=== PATIENT | male | born 1980 | race Two or more races ===

== ENCOUNTER 2024-11-06 21:21 | Emergency (ER) | payer MEDICAID, OTHER ==
[~2024-11-06] VITALS: Ht 172.7 cm; Wt 92.3 kg
[2024-11-06 21:25] VITALS: BP 92/64; RESP 18; O2SAT 98
[2024-11-06 21:41] VITALS: PULSE 47
[2024-11-06] MEDS ORDERED: SODIUM CHLORIDE 0.9% 2,000 ML IV ONE (21:45)
--- NOTE | 2024-11-06 21:56 | ED.PDOC ---
History of Present Illness HPI Comments 44 y/o M presents for c/o syncope, today. Patient endorses on having a sudden syncopal episode, while ambulating to his kitchen to get a drink, after getting up from a laying position, earlier, this evening. He comments on having a headache and feeling nausea prior to episode onset and having no Hx of syncopal episodes in the past. At time of assessment, patient states on feeling fatigue, currently, and denies on sustaining any injuries or developing any weakness, numbness, tingling, or other associated symptoms. Upon arrival to ED triage, patient was noted to have had a blood glucose of 100 and a blood pressure of 92/64. Chief Complaint: Syncope Time Seen by MD: 21:35 Reviewed Notes: Nurses Notes, Medications, Allergies Allergies: Coded Allergies: NO KNOWN ALLERGIES (Unverified , 11/06/24) Information Source: Patient Mode of Arrival: EMS Severity: Moderate Timing: Hours Duration: Minutes Prehospital treatment: None Past Medical History PAST MEDICAL HISTORY: Denies Surgical History: Denies all surgeries Family History Family History: Unknown Social History Smoker: Non-Smoker Alcohol: Denies ETOH Use Drugs: Denies Drug Use Lives In: Home Constitutional: reports: fatigue; denies: chills, diaphoresis, fever, malaise, sweats, weakness, others EENTM: denies: blurred vision, double vision, ear bleeding, ear discharge, ear drainage, ear pain, ear ringing, eye pain, eye redness, hearing loss, mouth pain, mouth swelling, nasal discharge, nose bleeding, nose congestion, nose pain, photophobia, tearing, throat pain, throat swelling, voice changes, others Respiratory: denies: cough, hemoptysis, orthopnea, SOB at rest, shortness of breath, SOB with excertion, stridor, wheezing, others Cardiovascular: reports: syncope; denies: chest pain, dizzy spells, diaphoresis, Dyspnea on exertion, edema, irregular heart beat, left arm pain, lightheadedness, palpitations, PND, others Gastrointestinal: denies: abdomen distended, abdominal pain, blood streaked bowels, constipated, diarrhea, dysphagia, difficulty swallowing, hematemesis, melena, nausea, poor appetite, poor fluid intake, rectal bleeding, rectal pain, vomiting, others Genitourinary: denies: burning, dysuria, flank pain, frequency, hematuria, incontinence, penile discharge, penile sore, pain, testicle pain, testicle swelling, urgency, others Neurological: reports: fainting; denies: dizziness, headache, left sided numbness, left sided weakness, numbness, paresthesia, pre-existing deficit, right sided numbness, right sided weakness, seizure, speech problems, tingling, tremors, weakness, others Musculoskeletal: denies: back pain, gout, joint pain, joint swelling, muscle pain, muscle stiffness, neck pain, others Integumetry: denies: bruises, change in color, change in hair/nails, dryness, laceration, lesions, lumps, rash, wounds, others Allergic/Immunocompromised: denies: Difficulty Healing, Frequent Infections, Hives, Itching, others Hematologic/Lymphatic: denies: anemia, blood clots, easy bleeding, easy bruising, swollen glands, others Endocrine: denies: excessive hunger, excessive sweating, excessive thirst, excessive urination, flushing, intolerance to cold, intolerance to heat, unexplained weight gain, unexplained weight loss, others Psychiatric: denies: anxiety, bipolar disorder, depression, hopeless, panic disorder, schizophrenia, sleepless, suicidal, others All Other Systems: Reviewed and Negative (negative unless otherwise stated above or in HPI) Physical Exam General Appearance: Mild Distress (Patient appears to be in mild distress due to his complaints. Patient appears tired.), Normal HEENT: Normal ENT Inspection, Pharynx Normal, TMs Normal Neck: Full Range of Motion, Non-Tender, Normal, Normal Inspection Respiratory: Chest Non-Tender, Lungs Clear, No Accessory Muscle Use, No Respiratory Distress, Normal Breath Sounds Cardiovascular: No Edema, No JVD, No Murmur, No Gallop, Normal Peripheral Pulses, Regular Rate/Rhythm Breast Exam: Deferred Gastrointestinal: No Organomegaly, Non Tender, No Pulsatile Mass, Normal Bowel Sounds, Soft Genitalia: Deferred Pelvic: Deferred Rectal: Deferred Extremities: No calf tenderness, Normal capillary refill, Normal inspection, Normal range of motion, Non-tender, No pedal edema Neurologic: Alert, No Motor Deficits, Normal Affect, Normal Mood, No Sensory Deficits Cerebellar Function: Normal Reflexes: Normal Skin: Dry, Normal Color, Warm Lymphatic: No Adenopathy Was a procedure done? Was a procedure done?: No Differential Dx Considerations may include: vasovagal response, dehydration, electrolyte imbalance, hypotension, hypoxia, acute coronary syndrome X-Ray, Labs, Meds, VS Vital Signs Date Time Temp Pulse Resp B/P (MAP) Pulse Ox O2 Delivery O2 Flow Rate FiO2 11/06/24 21:41 47 11/06/24 21:25 97.1 76 18 92/64 (73) 98 Lab Test 11/06/24 22:01 11/06/24 21:36 Range/Units White Blood Count 6.4 4.4-10.8 10^3/uL Red Blood Count 5.02 4.5-5.90 10^6/uL Hemoglobin 14.5 13.5-17.5 g/dL Hematocrit 43.8 41.0-53.0 % Mean Corpuscular Volume 87.2 80.0-100.0 fL Mean Corpuscular Hemoglobin 28.9 28.0-32.0 pg Mean Corpuscular Hemoglobin Concent 33.2 32.0-36.0 g/dL Red Cell Distribution Width 14.6 H 11.8-14.3 % Platelet Count 282 140-450 10^3/uL Mean Platelet Volume 6.8 L 6.9-10.8 fL Neutrophils (%) (Auto) 55.6 37.0-80.0 % Lymphocytes (%) (Auto) 31.5 10.0-50.0 % Monocytes (%) (Auto) 9.7 0.0-12.0 % Eosinophils (%) (Auto) 2.8 0.0-7.0 % Basophils (%) (Auto) 0.4 0.0-2.0 % Neutrophils # (Auto) 3.5 1.6-8.6 10 ^3/uL Lymphocytes # (Auto) 2.0 0.4-5.4 10 ^3/uL Monocytes # (Auto) 0.6 0-1.3 10 ^3/uL Eosinophils # (Auto) 0.2 0-0.8 10 ^3/uL Basophils # (Auto) 0 0-0.2 10 ^3/uL Nucleated Red Blood Cells 0.0 % Sodium Level 143 136-145 mmol/L Potassium Level 3.6 3.5-5.1 mmol/L Chloride Level 108 H 98-107 mmol/L Carbon Dioxide Level 29 20-31 mmol/L Anion Gap 6 5-15 Blood Urea Nitrogen 21 9-23 mg/dL Creatinine 1.56 H 0.700-1.30 mg/dL Glomerular Filtration Rate Calc 57 >90 mL/min BUN/Creatinine Ratio 13.5 10.0-20.0 Serum Glucose 128 H 74-106 mg/dL Lactic Acid Level 1.3 0.4-2.0 mmol/L Calcium Level 9.9 8.7-10.4 mg/dL POC Glucose 100 70-106 mg/dl X-Ray, Labs, Meds, VS Comment All studies performed the ED were evaluated by me personally. Laboratories studies were unremarkable for any systemic process. EKG was remarkable for a sinus bradycardia with a rate of 47, IA interval of 153 and QT interval 450. CT imaging of head was unremarkable for any acute intracranial process. I attempted multiple times to locate the patient in the lobby to inform him of the findings and a desire to repeat his vital signs due to hypotension, but it appears the patient has left the facility. Time of 1ST Reevaluation: 00:48 Reevaluation 1ST: Unchanged Consultation: PCP, Cardiology Patient Education/Counseling: Diagnosis, Treatment Family Education/Counseling: Diagnosis, Treatment, No Family Present Departure 1 Departure Time of Disposition: 00:48 Impression: Primary Impression: Vasovagal episode Disposition: LEFT AWOL/ELOPED Condition: Fair Discharged With: Self Critical Care Note Critical Care Time?: No Stability Stability form required: No Heart Score Heart Score: Heart Score Response (Comments) Value History N/A 0 EKG N/A 0 Age N/A 0 Risk Factors N/A 0 Troponin N/A 0 Total 0 I personally scribed for FAITH LAWRENCE PAC [email or web address]) on 11/06/24 at 21:56. Electronically submitted by Ayden Galarza ([email or web address]). I personally scribed for FAITH LAWRENCE PAC ([email or web address]) on 11/06/24 at 22:00. Electronically submitted by Ayden Galarza [email or web address]). FAITH LAWRENCE PAC Nov 06, 2024 21:56
[2024-11-06 22:14] LABS: Basophils # (auto) 0 10 ^3/uL (0-0.2); Basophils % (auto) 0.4 % (0.0-2.0); Eosinophils # (auto) 0.2 10 ^3/uL (0-0.8); Eosinophils % (auto) 2.8 % (0.0-7.0); Hematocrit 43.8 % (41.0-53.0); Hemoglobin 14.5 g/dL (13.5-17.5); Lymphocytes % (auto) 31.5 % (10.0-50.0); Mean Corpuscular Hemoglobin 28.9 pg (28.0-32.0); Mean Corpuscular Hgb Conc. 33.2 g/dL (32.0-36.0); Mean Corpuscular Volume 87.2 fL (80.0-100.0); Monocytes # (auto) 0.6 10 ^3/uL (0-1.3); Monocytes % (auto) 9.7 % (0.0-12.0); Neutrophils # (auto) 3.5 10 ^3/uL (1.6-8.6); Neutrophils % (auto) 55.6 % (37.0-80.0); Platelet Count (auto) 282 10^3/uL (140-450); Red Blood Cells 5.02 10^6/uL (4.5-5.90); Red Cell Distribution Width 14.6 % (11.8-14.3); White Blood Cell 6.4 10^3/uL (4.4-10.8)
--- NOTE | 2024-11-06 22:19 | DVH ---
CLINICAL HISTORY: Syncopal event TECHNIQUE: Helical imaging carried out from skull base to vertex without intravenous contrast. This e xam was performed according to our departmental dose optimization program. Up-to-date CT equipment an d radiation dose reduction techniques are utilized as appropriate. CTDIVol: 65.18 mGy DLP: 1153.87 mGy-cm WID: COMPARISON: None FINDINGS: The ventricles and subarachnoid spaces are normal in size and configuration. There is no midline deon ft or mass effect. The mcgrath white matter interfaces are maintained. The basal cisterns are patent. Th ere is no evidence of acute intracranial hemorrhage or extra-axial fluid collection. The mastoid air cells and visualized paranasal sinuses are well-aerated. IMPRESSION: No acute intracranial abnormality.
[2024-11-06 22:28] LABS: Potassium 3.6 mmol/L (3.5-5.1); Sodium 143 mmol/L (136-145)
[2024-11-06 22:29] LABS: Anion Gap 6 (5-15); Calcium 9.9 mg/dL (8.7-10.4); Carbon Dioxide 29 mmol/L (20-31)
[2024-11-06 22:34] LABS: BUN/Creatinine Ratio 13.5 (10.0-20.0); Blood Urea Nitrogen 21 mg/dL (9-23)
[2024-11-06 22:35] LABS: Chloride 108 mmol/L (98-107); Glucose 128 mg/dL (74-106)
--- NOTE | 2024-11-08 09:55 | ECG ---
[facility] Test Date: 2024-11-06 Test Time: 21:41:56 Pat Name: JONAS HONG Department: ER Room: Gender: M Rouge Miller: DALE : 1980 Requested By: FAITH LAWRENCE Order Number: [id number] Reading MD: Measurements Intervals [place] Rate: 47 P: 31 TX: 153 QRS: 79 QRSD: 85 T: 59 QT: 450 QTc: 398 Interpretive Statements Sinus bradycardia Please click the below link to view image of tracing.
== END 2024-11-07 01:11 | disposition left against medical advice (07) ==
LOC: ER 21:21
DX: R55 Syncope and collapse (principal); R51.9 Headache, unspecified; R11.0 Nausea
CPT/HCPCS: 36415; 70450; 80048; 82962; 83605; 85025; 93005

== ENCOUNTER 2024-11-10 21:57 | Inpatient (IN) | payer MEDICAID ==
[~2024-11-10] VITALS: Ht 175.3 cm; Wt 94.5 kg
--- NOTE | 2024-11-10 22:53 | ED.PDOC ---
HPI (NEURO) HPI Comments HPI: Poor Historian. 44-year-old male presents to emergency department for evaluation of a syncopal episode that happened at home today. The last thing patient remembers is getting up trying to get a drink. Next thing he knows is someone at the house waking him up when he was laying on the floor. Same thing happened four days ago and patient was evaluated in the emergency department for syncope and collapse and was discharged home. Patient states that these episodes never happened to him in the past. Denies any medical conditions. Denies being HIV. Denies taking any medications. Past Medcial History: Denies any Past Surgical History: Testicular cancer, inguinal hernia repair, lymph node resection. REVIEW OF SYSTEMS: CONSTITUTIONAL: Denies acute: fever, diaphoresis, chills, generalized weakness. HEAD: Denies acute: headache, photophobia Eyes: Denies acute: Double vision, vision loss, eye pain, eye discharge. EARS: Denies acute: tinnitus, hearing loss, ear discharge, ear pain, THROAT: Denies acute: sore throat, swelling, difficulty swallowing , pain with swa llowing, change in voice. NECK: Denies acute: neck pain, neck swelling, stiff neck. HEART: Denies acute : chest pain, palpitations, LUNGS: Denies acute: SOB, wheezing, cough, hemoptysis ABDOMEN: Denies acute: abdominal pain, Nausea, Vomiting, diarrhea, melena , hematemesis, hematochezia SKIN: Denies acute: rash, redness, lesions, itchiness. EXTREMITIES: Denies acute: calf pain, numbness, tingling, weakness, denies pain in extremity. Denies acute: Low back pain. Neuro: Denies acute: focal neurological deficit, motor or sensory focal neurological deficit, tremors, seizure like activity, confusion, change in mental status, loss of bowel or bladder function, cauda equina like symptoms. : Denies acute: dysuria, hematuria, flank pain, increase in urinary frequency. PSYCH: Denies acute: hallucination, suicidal ideation, homicidal ideation. PHYSICAL EXAM: General: no acute distress, awake and alert. Head: normocephalic, atraumatic. Neck: supple, trachea is midline, no swelling. Cervical spine: Palpation of the posterior midline of the cervical spine reveals no focal swelling, erythema, focal tenderness to palpation. Patient has normal range of motion. Throat: Normal phonation. Eyes:, no erythema, no purulent discharge, no proptosis, no icterus. Heart: regular rate, regular rhythm, no significant murmur appreciated. Lungs: no apparent respiratory distress, Able to speak in full sentences. No wheezing, no rhonchi, no crackles. No stridors Clear to auscultation bilaterally. Abdomen: non tender to palpation, non distended, soft, no guarding, no rebound, + bowel sounds. Neuro: Awake, Alert, oriented to name, self, situation, follows commands GCS=15. Speech is normal. Skin: no petechia, no purpura, no cyanosis, non-pale, not jaundice. Lower extremities: --no - Pitting edema no deformity, no focal swelling, no calf TTP. Makes eye contact. moves all four extremities. Face: no apparent facial droop. Ambulating in the ED independently. Chief Complaint: Syncope Time Seen by MD: 22:05 Reviewed Notes: Nurses Notes, Medications Information Source: Patient Mode of Arrival: Ambulatory Past Medical History PAST MEDICAL HISTORY: Denies Surgical History: Denies all surgeries Family History Family History: Unknown Social History Smoker: Non-Smoker Alcohol: Denies ETOH Use Drugs: Denies Drug Use Lives In: Home Was a procedure done? Was a procedure done?: No Differential Diagnosis (SZ) General Weakness: Other (Includes but not limited to thyroid disease, encephalopathy, electrolyte abnormality, sepsis, infection, intracranial pathology, drug adverse effects, arrhythmia, kidney insufficiency, ACS, CVA, malignancy, anemia) X-Ray, Labs, Meds, VS Vital Signs Date Time Temp Pulse Resp B/P (MAP) Pulse Ox O2 Delivery O2 Flow Rate FiO2 11/10/24 22:08 97.8 70 18 123/79 (94) 96 Lab Test 11/10/24 22:57 Range/Units White Blood Count 12.0 #H 4.4-10.8 10^3/uL Red Blood Count 5.27 4.5-5.90 10^6/uL Hemoglobin 15.3 13.5-17.5 g/dL Hematocrit 46.2 41.0-53.0 % Mean Corpuscular Volume 87.5 80.0-100.0 fL Mean Corpuscular Hemoglobin 29.1 28.0-32.0 pg Mean Corpuscular Hemoglobin Concent 33.2 32.0-36.0 g/dL Red Cell Distribution Width 14.3 11.8-14.3 % Platelet Count 273 140-450 10^3/uL Mean Platelet Volume 7.0 6.9-10.8 fL Neutrophils (%) (Auto) 79.6 37.0-80.0 % Lymphocytes (%) (Auto) 12.1 10.0-50.0 % Monocytes (%) (Auto) 7.1 0.0-12.0 % Eosinophils (%) (Auto) 1.1 0.0-7.0 % Basophils (%) (Auto) 0.1 0.0-2.0 % Neutrophils # (Auto) 9.5 H 1.6-8.6 10 ^3/uL Lymphocytes # (Auto) 1.4 0.4-5.4 10 ^3/uL Monocytes # (Auto) 0.9 0-1.3 10 ^3/uL Eosinophils # (Auto) 0.1 0-0.8 10 ^3/uL Basophils # (Auto) 0 0-0.2 10 ^3/uL Nucleated Red Blood Cells 0.0 % Sodium Level 141 136-145 mmol/L Potassium Level 3.7 3.5-5.1 mmol/L Chloride Level 106 98-107 mmol/L Carbon Dioxide Level 28 20-31 mmol/L Anion Gap 7 5-15 Blood Urea Nitrogen 17 9-23 mg/dL Creatinine 1.51 H 0.700-1.30 mg/dL Glomerular Filtration Rate Calc 59 >90 mL/min BUN/Creatinine Ratio 11.3 10.0-20.0 Serum Glucose 118 H 74-106 mg/dL Hemoglobin A1c 5.6 <5.7 % A1C Lactic Acid Level 1.4 0.4-2.0 mmol/L Calcium Level 10.2 8.7-10.4 mg/dL Magnesium Level 1.9 1.6-2.6 mg/dL Total Bilirubin 0.4 0.2-1.0 mg/dL Aspartate Amino Transferase (AST) 16 13-40 U/L Alanine Aminotransferase (ALT) 26 7-40 U/L Alkaline Phosphatase 85 46-116 U/L Troponin I High Sensitivity 41 </=54 ng/L Total Protein 7.7 5.7-8.2 g/dL Albumin 4.6 3.2-4.8 g/dL Time of 1ST Reevaluation: 00:00 Reevaluation 1ST: N/A Patient Education/Counseling: Diagnosis, Treatment Family Education/Counseling: Other Comments Patient presented with the above HPI.--syncope and collapse----workup was initiated. patient was found with the above mentioned diagnosis. the following medications were ordered: please refer to order lists of meds and tests obtained by myself Dr. Fernandez. Patient ED course and VS have been stabilized. Patient has been reassessed in the ED and remained in a stable condition. Pertinent incidental findings were discussed with the patient and/or family. Patient/family voices understanding and is agreeable with plan. Patient has been observed in the ED adequate length of time to insure improvement/stability. Escalation of care considered: Consideration of escalation to observation or admission Patient was ADMITTED to the medicine team for further evaluation and treatment of their presentation. All the reports of any imaging studies that were ordered by myself were reviewed by myself. Departure 1 Departure Time of Disposition: 22:54 Impression: Primary Impression: Syncope and collapse Additional Impression: Elevated troponin Disposition: ADMITTED INPATIENT Admit to: Tele Condition: Guarded Discharged With: Self Critical Care Note Critical Care Time?: Yes (35 min-critical care time only) LORI FERNANDEZ DO Nov 10, 2024 22:53
[2024-11-10 23:12] LABS: Basophils # (auto) 0 10 ^3/uL (0-0.2); Basophils % (auto) 0.1 % (0.0-2.0); Eosinophils # (auto) 0.1 10 ^3/uL (0-0.8); Eosinophils % (auto) 1.1 % (0.0-7.0); Hematocrit 46.2 % (41.0-53.0); Hemoglobin 15.3 g/dL (13.5-17.5); Lymphocytes # (auto) 1.4 10 ^3/uL (0.4-5.4); Lymphocytes % (auto) 12.1 % (10.0-50.0); Mean Corpuscular Hemoglobin 29.1 pg (28.0-32.0); Mean Corpuscular Hgb Conc. 33.2 g/dL (32.0-36.0); Mean Corpuscular Volume 87.5 fL (80.0-100.0); Monocytes # (auto) 0.9 10 ^3/uL (0-1.3); Monocytes % (auto) 7.1 % (0.0-12.0); Neutrophils # (auto) 9.5 10 ^3/uL (1.6-8.6); Neutrophils % (auto) 79.6 % (37.0-80.0); Platelet Count (auto) 273 10^3/uL (140-450); Red Blood Cells 5.27 10^6/uL (4.5-5.90); Red Cell Distribution Width 14.3 % (11.8-14.3)
--- NOTE | 2024-11-10 23:16 | DVH ---
EXAM: CT HEAD WITHOUT CONTRAST INDICATION: syncope and collapse TECHNIQUE: CT of the head without intravenous contrast. Radiation Dose Information: CT Dose: CTDI volume is 63.92 mGy. Dose-length product is 1131.69 mGy*cm The dose indicators for CT are the volume Computed Tomography (CT) Dose Index (CTDIvol) and the Dose Length Product (DLP), and are measured in units of mGy and mGy-cm, respectively. These indicators are not patient dose, but values generated from the CT scanner acquisition factors. The report includes radiation exposure data for exposures received during this examination. COMPARISON: CT HEAD WITHOUT CONTRAST on DOS: 11/06/24 FINDINGS: There is no evidence of acute intracranial hemorrhage, extra-axial collection, mass effect, midline s hift, herniation or hydrocephalus. The ventricles, sulci and cisterns are age appropriate. The mcgrath-white differentiation is intact. Patchy periventricular and subcortical white matter hypoattenuation is nonspecific but may be related to small vessel ischemic disease. The visualized paranasal sinuses and mastoid air cells are clear. The surrounding soft tissues and osseous structures are unremarkable. IMPRESSION: 1. No acute intracranial hemorrhage 2. No CT findings of territorial ischemia. HS:Y
--- NOTE | 2024-11-10 23:17 | DVH ---
EXAM: XY CHEST PORTABLE CLINICAL HISTORY: syncope dizzy TECHNIQUE: Single AP view of the chest WID: COMPARISON: None FINDINGS: Lines and tubes: None Chest: The heart size and pulmonary vasculature is within normal limits. No pleural effusion, pneumothorax, or consolidation. Linear bibasal atelectasis or scarring. The osseous structures are grossly intact. IMPRESSION: No acute cardiopulmonary abnormality.
[2024-11-10 23:27] LABS: Alanine Aminotransferase 26 U/L (7-40); Albumin 4.6 g/dL (3.2-4.8); Alkaline Phosphatase 85 U/L (46-116); Anion Gap 7 (5-15); Aspartate Aminotransferase 16 U/L (13-40); BUN/Creatinine Ratio 11.3 (10.0-20.0); Blood Urea Nitrogen 17 mg/dL (9-23); Calcium 10.2 mg/dL (8.7-10.4); Carbon Dioxide 28 mmol/L (20-31); Chloride 106 mmol/L (98-107); Glucose 118 mg/dL (74-106); Magnesium 1.9 mg/dL (1.6-2.6); Potassium 3.7 mmol/L (3.5-5.1); Sodium 141 mmol/L (136-145)
[2024-11-10 23:28] LABS: Bilirubin, Total 0.4 mg/dL (0.2-1.0); Total Protein 7.7 g/dL (5.7-8.2)
--- NOTE | 2024-11-10 23:53 | DVHHPRES ---
History of Present Illness Resident Creating Document: JENN PLAZA History of Present Illness 44-year-old male with past medical history of testicular cancer diagnosed 17 years ago, came in due to syncope. According to the patient around 9pm on 11/10/2022 he woke up to go get water from the kitchen, while on the way he started feeling dizzy, sweaty, nauseous and then passed out. Patient unsure how long he was passed out for and was awoken by a family friend visiting his home. Shortly after regaining consciousness, patient notes feeling hot, sweaty along with a headache and dyspnea. Patient had a similar episode of syncope 4 days ago when he visited the ER at the [facility] and shortly thereafter left AMA. Prior to 4 days ago he has never had similar symptoms of syncope before. On review of systems he is complaining of fatigue, palpitations, anxiety and some degree of depression. Mild elevation in WBC noted, 12,000. Past Medical History Testicular cancer Past Surgical History Lymph node dissection Family History Father: Murdered at the age of 42 Mother: Denies any cardiac history on the maternal side Smoke: No ALCOHOL: none Drugs: None Lives: with Family Review of Systems Constitutional: Yes: Malaise; No: Fever, Chills, Sweats, Weakness, Other Eyes: No: Pain, Vision change, Conjunctivae inflammation, Eyelid inflammation, Other, Redness ENT: No: Ear pain, Ear discharge, Nose pain, Nose discharge, Nose congestion, Mouth pain, Mouth swelling, Throat pain, Throat swelling, Other Respiratory: No: Cough, Dry, Shortness of breath, SOB with excertion, Wheezing, Hemoptysis, Pleuritic Pain, Sputum, Wheezing, Other Cardiovascular: Palpitations; No: Chest Pain, Orthopnea, Paroxysmal Noc. Dyspnea, Edema, Lt Headedness, Other Gastrointestinal: No: Nausea, Vomiting, Abdominal Pain, Diarrhea, Constipation, Melena, Hematochezia, Other Genitourinary: No Dysuria, No Frequency, No Incontinence, No Hematuria, No Retention, No Other Musculoskeletal: No: other, neck pain, shoulder pain, arm pain, back pain, hand pain, leg pain, foot pain Skin: No: Rash, Lesions, Jaundice, Bruising, Other Neurological: No: Weakness, Numbness, Incoordination, Change in speech, Confusion, Seizures, Other Allergies: Coded Allergies: NO KNOWN ALLERGIES (Unverified , 11/06/24) Exam Vital Signs Vital Signs Date Time Temp Pulse Resp B/P (MAP) Pulse Ox O2 Delivery O2 Flow Rate FiO2 11/10/24 22:08 97.8 70 18 123/79 (94) 96 General Appearance: Alert, Oriented X3, Cooperative, No acute distress HEENT: Atraumatic, PERRLA, EOMI, Mucous membr. moist/pink Respiratory: Clear to auscultation, Normal air movement Cardiovascular: Regular rate, Normal S1, Normal S2, No murmurs Abdominal: Normal bowel sounds, Soft, No tenderness Extremities: No clubbing, No cyanosis, No edema Skin: No rashes, No significant lesion Neuro: Normal speech, Strength at 5/5 X4 ext, Sensation intact Psych/Mental Status: Mental status NL, Mood NL Labs/Xrays Labs Test 11/10/24 22:57 Range/Units White Blood Count 12.0 #H 4.4-10.8 10^3/uL Red Blood Count 5.27 4.5-5.90 10^6/uL Hemoglobin 15.3 13.5-17.5 g/dL Hematocrit 46.2 41.0-53.0 % Mean Corpuscular Volume 87.5 80.0-100.0 fL Mean Corpuscular Hemoglobin 29.1 28.0-32.0 pg Mean Corpuscular Hemoglobin Concent 33.2 32.0-36.0 g/dL Red Cell Distribution Width 14.3 11.8-14.3 % Platelet Count 273 140-450 10^3/uL Mean Platelet Volume 7.0 6.9-10.8 fL Neutrophils (%) (Auto) 79.6 37.0-80.0 % Lymphocytes (%) (Auto) 12.1 10.0-50.0 % Monocytes (%) (Auto) 7.1 0.0-12.0 % Eosinophils (%) (Auto) 1.1 0.0-7.0 % Basophils (%) (Auto) 0.1 0.0-2.0 % Neutrophils # (Auto) 9.5 H 1.6-8.6 10 ^3/uL Lymphocytes # (Auto) 1.4 0.4-5.4 10 ^3/uL Monocytes # (Auto) 0.9 0-1.3 10 ^3/uL Eosinophils # (Auto) 0.1 0-0.8 10 ^3/uL Basophils # (Auto) 0 0-0.2 10 ^3/uL Nucleated Red Blood Cells 0.0 % Sodium Level 141 136-145 mmol/L Potassium Level 3.7 3.5-5.1 mmol/L Chloride Level 106 98-107 mmol/L Carbon Dioxide Level 28 20-31 mmol/L Anion Gap 7 5-15 Blood Urea Nitrogen 17 9-23 mg/dL Creatinine 1.51 H 0.700-1.30 mg/dL Glomerular Filtration Rate Calc 59 >90 mL/min BUN/Creatinine Ratio 11.3 10.0-20.0 Serum Glucose 118 H 74-106 mg/dL Lactic Acid Level 1.4 0.4-2.0 mmol/L Calcium Level 10.2 8.7-10.4 mg/dL Magnesium Level 1.9 1.6-2.6 mg/dL Total Bilirubin 0.4 0.2-1.0 mg/dL Aspartate Amino Transferase (AST) 16 13-40 U/L Alanine Aminotransferase (ALT) 26 7-40 U/L Alkaline Phosphatase 85 46-116 U/L Troponin I High Sensitivity 41 </=54 ng/L Total Protein 7.7 5.7-8.2 g/dL Albumin 4.6 3.2-4.8 g/dL Assessment/Plan Assessment/Plan Syncope likely due to autonomic dysfunction versus cardiac cause? Questionable dehydration NSTEMI type 2 - EKG, echocardiogram, carotid Doppler - orthostatic vital signs - morning cortisol, UA, UDS, TSH, blood alcohol levels - cardiology consulted - serial troponins 41, 57 ADÁN likely hemodynamically mediated/VMN on questionable CKD - IV NS 500 cc bolus - monitor History of testicular cancer - monitor Goals of care: Full code, discussed for >16 minutes on 11/10/2024 Plan discussed with patient Plan discussed with Dr. Klein Plan discussed with: Patient, Other (RN) Date of Service: Nov 10, 2024 Billing Provider: MARIO KLEIN MD Common Visit Codes: 77067-[id number] INP/OBS CARE (HIGH) JENN PLAZA Nov 10, 2024 23:53 MARIO KLEIN MD Nov 11, 2024 09:45
--- NOTE | 2024-11-11 01:49 | DVH ---
US CAROTID DOPPLER CLINICAL INDICATION: syncope TECHNIQUE: Multiple grayscale, color Doppler and spectral Doppler ultrasound images were obtained thr oughout both carotid systems. COMPARISON: None FINDINGS: RIGHT: CCA PSV: 65 cm/s ECA PSV: 91 cm/s ICA PSV: 70 cm/s ICA EDV: 30 cm/s ICA/CCA Ratio: Less than 2 Vertebral artery: Patent, antegrade flow. Grayscale images demonstrate no significant plaque or visible stenosis. Spectral analysis demonstrate s no hemodynamically significant CCA or ICA stenosis. LEFT: CCA PSV: 82 cm/s ECA PSV: 104 cm/s ICA PSV: 76 cm/s ICA EDV: 30 cm/s ICA/CCA Ratio: 2 Vertebral artery: Patent, antegrade flow. Grayscale images demonstrate no significant plaque or visible stenosis. Spectral analysis demonstrate s no hemodynamically significant CCA or ICA stenosis. IMPRESSION: Normal carotid ultrasound without evidence of hemodynamically significant CCA or ICA stenosis.
[2024-11-11] MEDS: SODIUM CHLORIDE 0.9% 500 ML IV ONE (03:35)
[2024-11-11] MEDS: SODIUM CHLORIDE 0.9% 1,000 ML IV ONE ×2 (04:26→19:07)
[2024-11-11] MEDS: ASPirin 325 MG TAB PO ONE (04:26)
[2024-11-11 08:45] LABS: LDL Cholesterol 110 mg/dL (< 100); Triglycerides 150 mg/dL (< 150)
[2024-11-11 08:46] LABS: Cholesterol 155 mg/dL (< 200)
[2024-11-11 08:50] LABS: HDL Cholesterol 34 mg/dL (40-59)
--- NOTE | 2024-11-11 10:58 | DVHINCON2 ---
Date Seen: Nov 11, 2024 Referring Physician MD Fly resident Reason for Consultation Syncope History of Present Illness This is a 44-year-old male patient who presents to emergency room with chief complaint of syncopal episode. The patient reports that this is the 2nd syncopal episode in four days that he has experienced. He reports that prior to coming to the emergency room, he was at home lying down and got to walk over to his kitchen. While walking to his kitchen from his bedroom, he reports feeling dizziness. He reports passing out before reaching the kitchen. He reports loss of consciousness but denies hitting his head. He said he came to the emergency room approximately four days ago with the same event, but left against medical advice at that time because he did not want to wait in the emergency room any longer. He now comes back for further evaluation. No twelve lead electrocardiogram seen in patient's hard chart. Twelve lead electrocardiogram done at time of assessment and reveals normal sinus rhythm with nonspecific ST segment changes to inferior leads. Initial troponin level of 41ng/L with peak level at 61ng/L. Significant past medical history includes testicular cancer approximately 17 years ago status post chemo and radiation therapy, lymph node removal, hernia repair x2, insomnia, and obesity. The patient reports taking trazodone at home. Past Medical History Past medical history reviewed. No other significant than mentioned above. Past Surgical History Lymph node removal Hernia repair x2 Family History Family history reviewed. Social History Denies the use of tobacco, alcohol or illicit drugs. Allergies: Coded Allergies: NO KNOWN ALLERGIES (Unverified , 11/06/24) Home Meds Home medications reviewed. Review of Systems Constitutional: No symptom reported Ears, Nose, & Throat: No symptom reported Eyes: No symptom reported Neurological: Syncope Pulmonary/Respiratory: No symptoms reported Cardiovascular: No symptom reported Gastrointestinal: No symptom reported Genitourinary: No symptom reported Musculoskeletal: No symptom reported Skin: No symptom reported Psychiatric: No symptom reported Endocrine: No symptom reported Hematologic/Lymphatic: No symptom reported Vital Signs Vital Signs Date Time Temp Pulse Resp B/P (MAP) Pulse Ox O2 Delivery O2 Flow Rate FiO2 11/11/24 09:29 98.0 58 16 139/84 (102) 100 98.0 Physical Exam General Appearance: Cooperative. Well-developed. Well-nourished. No acute distress. Pulmonary/Respiratory: Clear, bilateral breaths sounds. Cardiovascular/Chest: Regular rate and rhythm. Peripheral Pulses: 2+ Radial (R). 2+ Radial (L). 2+ Pedal (R). 2+ Pedal (L) Abdominal Exam: Normal bowel sounds. Ankle Exam: Negative ankle edema Lower extremities: Negative lower extremity edema Neuro/Mental Status: A/OX4, coherent. Thoughts/Psych: Normal thought pattern. Appropriate mood and affect. Good judgment and insight. Appearance: No acute distress. Skin Exam: Normal inspection. Normal color. Warm and dry. Labs/Diagnostic Data Labs Test 11/11/24 01:47 11/10/24 23:53 11/10/24 22:57 Range/Units Troponin I High Sensitivity 61 *H </=54 ng/L Triglycerides Level 150 H < 150 mg/dL Cholesterol Level 155 < 200 mg/dL LDL Cholesterol 110 H < 100 mg/dL HDL Cholesterol 34 L 40-59 mg/dL Thyroid Stimulating Hormone (TSH) 3.27 0.55-4.78 uIU/mL Plasma/Serum Blood Alcohol < 3.0 <10 mg/dL White Blood Count 12.0 #H 4.4-10.8 10^3/uL Red Blood Count 5.27 4.5-5.90 10^6/uL Hemoglobin 15.3 13.5-17.5 g/dL Hematocrit 46.2 41.0-53.0 % Mean Corpuscular Volume 87.5 80.0-100.0 fL Mean Corpuscular Hemoglobin 29.1 28.0-32.0 pg Mean Corpuscular Hemoglobin Concent 33.2 32.0-36.0 g/dL Red Cell Distribution Width 14.3 11.8-14.3 % Platelet Count 273 140-450 10^3/uL Mean Platelet Volume 7.0 6.9-10.8 fL Neutrophils (%) (Auto) 79.6 37.0-80.0 % Lymphocytes (%) (Auto) 12.1 10.0-50.0 % Monocytes (%) (Auto) 7.1 0.0-12.0 % Eosinophils (%) (Auto) 1.1 0.0-7.0 % Basophils (%) (Auto) 0.1 0.0-2.0 % Neutrophils # (Auto) 9.5 H 1.6-8.6 10 ^3/uL Lymphocytes # (Auto) 1.4 0.4-5.4 10 ^3/uL Monocytes # (Auto) 0.9 0-1.3 10 ^3/uL Eosinophils # (Auto) 0.1 0-0.8 10 ^3/uL Basophils # (Auto) 0 0-0.2 10 ^3/uL Nucleated Red Blood Cells 0.0 % Sodium Level 141 136-145 mmol/L Potassium Level 3.7 3.5-5.1 mmol/L Chloride Level 106 98-107 mmol/L Carbon Dioxide Level 28 20-31 mmol/L Anion Gap 7 5-15 Blood Urea Nitrogen 17 9-23 mg/dL Creatinine 1.51 H 0.700-1.30 mg/dL Glomerular Filtration Rate Calc 59 >90 mL/min BUN/Creatinine Ratio 11.3 10.0-20.0 Serum Glucose 118 H 74-106 mg/dL Hemoglobin A1c 5.6 <5.7 % A1C Lactic Acid Level 1.4 0.4-2.0 mmol/L Calcium Level 10.2 8.7-10.4 mg/dL Magnesium Level 1.9 1.6-2.6 mg/dL Total Bilirubin 0.4 0.2-1.0 mg/dL Aspartate Amino Transferase (AST) 16 13-40 U/L Alanine Aminotransferase (ALT) 26 7-40 U/L Alkaline Phosphatase 85 46-116 U/L Total Protein 7.7 5.7-8.2 g/dL Albumin 4.6 3.2-4.8 g/dL Assessment Syncope, rule out cardiac etiology NSTEMI, likely type II Dyslipidemia, newly diagnosed Acute kidney injury Obesity Plan/Recommendation We will continue with the following plan/recommendations (Dr. Engle): * Echocardiogram reveals EF 60-65%, RVSP 30 mmHg * Bilateral carotid ultrasound: No evidence of hemodynamically significant ICA stenosis * Orthostatic vital signs * Lipid-lowering agent * Cardiac surveillance: Notify of any ECG changes Patient seen and examined at bedside with . Thank you for allowing us to care for this patient. Please call with any questions or concerns. Critical care time spent: 38 minutes This medical document was created using an electronic medical record system with voice recognition software and computerized dictation system. Although this document has been carefully reviewed, there might still be some phonetic and typographical errors. Occasional wrong-word or ``sound-alike substitutions may have occurred due to the inherent limitations of voice recognition software. These areas are purely typographical due to imperfections of the software tameka [email or web address] and do not reflect any compromise in the patient's medical care. Please read the chart carefully and recognize, using context, where these substitutions have occurred. Plan discussed with: Patient NYHA Physical activity limitations: NA Date of Service: Nov 11, 2024 Billing Provider: ANN ENGLE MD Cardiology Common Codes: [id number] INP/OBS CARE (High) Cardiology Consultation Codes: [id number] CONSULT <45MIN CHARMAINE CRANE APPOINTMENT SPECIALIST Nov 11, 2024 10:57
[2024-11-11 11:00] VITALS: PULSE 58; RESP 16; O2SAT 100
--- NOTE | 2024-11-11 12:13 | DVHSR ---
APPROVED REPORT EXAM: Two-dimensional and M-mode echocardiogram with Doppler and color Doppler. Blood Pressure: 139/84 mmHg INDICATION Syncope RISK FACTORS Height: 5'9, Weight: 210 DIMENSIONS LVDd4.4 (3.8-5.7cm)LA (2D)4.0 (1.9-4.0cm)Aortic Root3.2 (2.0-3.7cm) LVDs2.9 (2.5-4.0cm)LA (MM) (1.9-4.0cm)Aortic Cusp Exc1.8 (1.5-2.0cm) EF (%) 55.0 (55-70%)Rt. Atrium4.7 (1.9-4.0cm)Asc. Aorta3.2 cm IVSd1.0 (0.7-1.1cm)RV (D)4.4 (1.8-2.4cm) PWd0.9 (0.7-1.1cm) Mitral Valve MitralMitral Stenosis E wave0.94m/sMV Mean GR.mmHg A wave0.79m/sMV Peak GR.63mmHg E/A ratio1.22D MVAcm2 DECEL [id number] 1/2 Timems Aortic Valve Aortic ValveAortic Stenosis V11.25m/Oren Mean GR.9mmHg V21.93m/Oren Peak GR.15mmHg LVOT Diameter2.2 (1.8-2.4cm)Doppler AVA2.46cm2 Pulmonic Valve V21.26m/s Tricuspid Valve TR Velocity2.58m/s [id number] LEFT VENTRICLE The left ventricle is of normal size. Wall thickness is normal. Ejection fraction is normal and is estimated at 60-65%. There is no regional wall motion abnormalities. Diastolic function is preserve d. E to E prime ratio is in the normal range. RIGHT VENTRICLE The right ventricle is mildly dilated in size. Systolic function is normal. ATRIA The left atrium is of normal size. Right atrium is of normal size. Intra-atrial septum appears to b e normal. MITRAL VALVE Normal structure and function. There is mild mitral regurgitation. PULMONIC VALVE Likely normal. TRICUSPID VALVE Normal structure and function. There is trace tricuspid regurgitation. PA systolic pressure is ang[place] mated at 30 mm Hg. AORTIC VALVE Normal structure and function. GREAT VESSELS Aortic root is of normal size. Proximal ascending aorta isn't visualized. PERICARDIAL EFFUSION No significant pericardial effusion. IVC is of normal size and collapses normally with inspiration. Conclusion Normal left ventricular size and systolic function. Ejection fraction estimated at 60-65%. Mildly dilated right ventricle with normal systolic function. No hemodynamically significant valvular disease. PA systolic pressure is estimated at 30 mm Hg. No significant pericardial effusion.
[2024-11-11 17:22] VITALS: BP 134/77; PULSE 61; RESP 18; TEMP 97.9; O2SAT 99
--- NOTE | 2024-11-11 18:47 | DVHPNRES ---
Progress Note Date Seen: Nov 11, 2024 Resident Creating Document: JUSTIN BARTH RESIDENT Has the PT tested + for MRSA If YES, has PT been informed?: No Medical Necessity Reason Pt with a Central, PICC or Fol: No Medical Necessity Reason Syncope Subjective Review of Systems This is a 44-year-old male with past medical history of testicular cancer diagnosed 17 years ago status post resection, came in due to syncope. According to the patient, around 9pm on 11/10/2022 he woke up to go get water from the kitchen, while on the way he started feeling dizzy, sweaty, nauseous and then passed out. Patient unsure how long he was passed out for and was awoken by a family friend visiting his home. Shortly after regaining consciousness, patient notes feeling hot, sweaty along with a headache and dyspnea. Patient had a similar episode of syncope 4 days ago when he visited the ER at the [facility] and shortly thereafter left AMA. Prior to 4 days ago he has never had similar symptoms of syncope before. On review of systems he is complaining of fatigue, palpitations, anxiety and some degree of depression. Initial vitals temperature 97.8, pulse 70, respiratory rate 18 BP:123/79, SpO2 on RA 96%. Lab : WBC noted, 12,000,Cr:1.51 (previous 1.56), troponin 41--> 57--> 61. TSH: 3.247 Twelve lead electrocardiogram reveals normal sinus rhythm with nonspecific ST segment changes to inferior leads. Echo revealed left ventricle is of normal size. Wall thickness is normal. Ejection fraction is normal and is estimated at 60-65%. There is no regional wall motion abnormalities. Diastolic function is preserved. E to E prime ratio is in the normal range. Carotid duplex Normal carotid ultrasound without evidence of hemodynamically significant CCA or ICA stenosis. CT head did not reveal any acute intracranial hemorrhage or territorial ischemia. Chest x-ray was negative for acute cardiopulmonary abnormality. Constitutional: Denies fever no chill; just fatigue HEENT: Denies headache, ear pain, ear discharges, conjunctivitis, nasal discharge throat pain Cardiovascular: Denies chest pain, palpitation, orthopnea, PND, or pedal edema Respiratory: Denies shortness of breath, cough cough, sputum production, hemoptysis, GI: Denies abdominal pain, nausea, vomiting, diarrhea, hematemesis, hematochezia, : Denies frequency, urgency, hematuria, Endocrine: Denies unintentional weight gain or weight loss, feeling of hot flashes, Eric: Denies easy bruising, bleeding disorders, epistaxis Musculoskeletal: Denies joint pains, muscle aches Psych: No evidence of depression, moses, suicidal ideation Objective vital signs Vital Sign Date Time Temp Pulse Resp B/P (MAP) Pulse Ox O2 Delivery O2 Flow Rate FiO2 11/11/24 17:22 97.9 61 18 134/77 (96) 99 97.9 11/11/24 15:43 Room Air 11/11/24 11:00 0 21 Total Intake and Output 11/10/24 11/10/24 11/11/24 15:00 23:00 07:00 Intake Total 1500 ml Balance 1500 ml medications Current Medications Medications Dose Ordered Sig/Dawit Route Start Time Stop Time Status Last Admin Dose Admin Atorvastatin Calcium 20 mg HS PO 11/11/24 22:00 Examination General Appearance: Alert, Oriented X3, Cooperative, No acute distress HEENT: Atraumatic, PERRLA, EOMI, Mucous membrane moist/pink Respiratory: Clear to auscultation, Normal air movement Cardiovascular: Regular rate, Normal S1, Normal S2, No murmurs, no chest wall tenderness Abdominal: NO distention, no tenderness, bowel sounds present, no scars noted Extremities: No clubbing, No cyanosis, No edema, Normal pulses, No tenderness/swelling Skin: No rashes, No breakdown, No significant lesion Neuro: Normal gait, Normal speech, Strength at 5/5 X4 ext, Normal tone, Sensation intact, Cranial nerves 3-12 NL, Reflexes 2+ Psych/Mental Status: Mental status NL, Mood NL laboratory and microbiology Laboratory Tests 11/10/24 22:57 Test 11/10/24 22:57 Range/Units Serum Glucose 118 H 74-106 mg/dL Problem List/Assessment/Plan Problem List/Assessment/Plan Syncope rule out cardiac vs neuro vs endocrine causes ADÁN questionable acute on CKD 3a NSTEMI likely type II Dyslipidemia, newly diagnosed Acute kidney injury Obesity, BMI: 31.1 Insomnia History of testicular cancer diagnosed 17 years ago s/p resection PLAN pending UDS and other lab works Orthostatic blood pressure Maintenance fluid Repeat lab in the AM TRAOZODONE prn ?Nephrology consult Diet: regular DVT Prophylaxis: Patient is mobile none at this time Code status: Full Goal of care discussed for more than 25 minute Case and plan discussed with Dr. Saxena Plan discussed with: Patient My Orders My Orders Orders - JUSTIN BARTH Procedure Category Date Status Time B-Type Natriuretic LAB 11/11/24 Logged Peptide 07:21 PTPTT LAB 11/11/24 Logged 07:21 Regular Diet DIET 11/11/24 Transmitted Dinner Date of Service: Nov 11, 2024 Billing Provider: KINGS SAXENA MD Common Visit Codes: [id number] INP/OBS CARE(HIGH) JUSTIN BARTH Nov 11, 2024 18:47 KINGS SAXENA MD Nov 17, 2024 20:36
[2024-11-11] MEDS ORDERED: TRAZ-228 PO (18:58)
[2024-11-11 19:10] LABS: INR 1.03 (0.9-1.15); Prothrombin Time 10.9 sec (9.3-11.8)
[2024-11-11 20:00] VITALS: PULSE 60; RESP 18
[2024-11-11] MEDS: traZODone HCL 50 MG TAB PO PRN (20:27)
[2024-11-11] MEDS: ATORVASTATIN 20 MG TAB PO SCH (20:27)
[2024-11-11 21:00] VITALS: BP 137/75; PULSE 55; RESP 18; TEMP 97.8; O2SAT 97
[2024-11-11] MEDS ORDERED: traZODone HCL 50 MG TAB PO SCH (22:00)
[2024-11-12] VITALS (8 sets, daily range): BP systolic 0–132; BP diastolic 64–80; PULSE 47–86; RESP 18–20; TEMP 97.6–98.9; O2SAT 94–100
--- NOTE | 2024-11-12 06:47 | ECG ---
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
[2024-11-12] MEDS: SODIUM CHLORIDE 0.9% 1,000 ML IV SCH (10:02)
[2024-11-12 10:45] LABS: Basophils # (auto) 0 10 ^3/uL (0-0.2); Basophils % (auto) 0.3 % (0.0-2.0); Eosinophils # (auto) 0.2 10 ^3/uL (0-0.8); Eosinophils % (auto) 2.5 % (0.0-7.0); Hematocrit 42.6 % (41.0-53.0); Hemoglobin 14.3 g/dL (13.5-17.5); Lymphocytes # (auto) 1.4 10 ^3/uL (0.4-5.4); Lymphocytes % (auto) 21.7 % (10.0-50.0); Mean Corpuscular Hemoglobin 29.3 pg (28.0-32.0); Mean Corpuscular Hgb Conc. 33.6 g/dL (32.0-36.0); Mean Corpuscular Volume 87.1 fL (80.0-100.0); Monocytes # (auto) 0.6 10 ^3/uL (0-1.3); Monocytes % (auto) 9.3 % (0.0-12.0); Neutrophils # (auto) 4.4 10 ^3/uL (1.6-8.6); Neutrophils % (auto) 66.2 % (37.0-80.0); Platelet Count (auto) 244 10^3/uL (140-450); Red Blood Cells 4.89 10^6/uL (4.5-5.90); Red Cell Distribution Width 14.3 % (11.8-14.3); White Blood Cell 6.7 10^3/uL (4.4-10.8)
[2024-11-12 11:11] LABS: Potassium 4.3 mmol/L (3.5-5.1); Sodium 142 mmol/L (136-145)
[2024-11-12 11:12] LABS: Anion Gap 3 (5-15); Carbon Dioxide 30 mmol/L (20-31)
[2024-11-12 11:17] LABS: BUN/Creatinine Ratio 11.1 (10.0-20.0); Blood Urea Nitrogen 15 mg/dL (9-23); Chloride 109 mmol/L (98-107); Glucose 87 mg/dL (74-106)
--- NOTE | 2024-11-12 12:00 | DVHPN2 ---
Consult Progress Note Subjective Other Systems: Denies any cardiac symptoms. Patient in normal sinus rhythm on environmental monitoring specialist. Objective vital signs Vital Sign Date Time Temp Pulse Resp B/P (MAP) Pulse Ox O2 Delivery O2 Flow Rate FiO2 11/12/24 08:25 98.0 73 20 121/75 (90) 99 98.0 123/80 (94) 128/79 (95) 11/11/24 20:00 Room Air* 0 21 Total Intake and Output 11/11/24 11/11/24 11/12/24 15:00 23:00 07:00 Intake Total 200 ml 200 ml Output Total 550 ml Balance 200 ml -350 ml medications Current Medications Medications Dose Ordered Sig/Dawit Route Start Time Stop Time Status Last Admin Dose Admin Atorvastatin Calcium 20 mg HS PO 11/11/24 22:00 11/11/24 20:27 20 MG Trazodone HCl 100 mg HS PRN PO 11/11/24 18:45 11/11/24 20:27 100 MG Sodium Chloride 1,000 ml @ 125 mls/hr Q8H IV 11/12/24 09:30 11/12/24 10:02 125 MLS/HR Examination: GENERAL:Normal, LUNGS:Normal, CVS:Normal, NEURO:Normal laboratory and microbiology Laboratory Tests 11/12/24 10:21 Test 11/12/24 10:21 Range/Units Serum Glucose 87 74-106 mg/dL Problem List/Assessment/Plan Problem List/Assessment/Plan Syncope, rule out cardiac etiology NSTEMI, likely type II Dyslipidemia, newly diagnosed Acute kidney injury Obesity Plan/Recommendation (Dr. Engle): * Echocardiogram reveals EF 60-65%, RVSP 30 mmHg * Bilateral carotid ultrasound: No evidence of hemodynamically significant ICA stenosis * Orthostatic vital signs: Negative * Lipid-lowering agent * Cardiac surveillance: Notify of any ECG changes * UDS Patient seen and examined at bedside with . There is no further inpatient cardiac workup indicated at this time. Please reconsult if needed. Thank you for allowing us to care for this patient. Please call with any questions or concerns. This medical document was created using an electronic medical record system with voice recognition software and computerized dictation system. Although this document has been carefully reviewed, there might still be some phonetic and typographical errors. Occasional wrong-word or ``sound-alike substitutions may have occurred due to the inherent limitations of voice recognition software. These areas are purely typographical due to imperfections of the software programs and do not reflect any compromise in the patient's medical care. Please read the chart carefully and recognize, using context, where these substitutions have occurred. Plan discussed with: Patient Date of Service: Nov 12, 2024 Billing Provider: ANN ENGLE MD Common Visit Codes: [id number] INP/OBS CARE(HIGH) CHARMAINE CRANE AIR TESTER Nov 12, 2024 12:00
[2024-11-12 15:37] LABS: Urine Bacteria None Seen /hpf (None Seen)
[2024-11-12 15:54] LABS: Urine Blood Negative /uL (Negative); Urine Clarity Clear (Clear); Urine Color Light-Yellow (Yellow); Urine Protein, UAD Negative (Negative); Urine Specific Gravity 1.011 (1.001-1.035); Urine Squamous Epithelial Cell None Seen /hpf (<5); Urine Urobilinogen Normal (Negative); Urine WBC 1 /HPF (0-3)
[2024-11-12 16:17] LABS: Amphetamine Screen, Urine Neg (NEGATIVE); Barbiturate Scree,Urine Neg (NEGATIVE); Benzodiazephine Screen, Urine Neg (NEGATIVE); Cannabinoid Screen, Urine Neg (NEGATIVE); Cocaine Screen, Urine Neg (NEGATIVE); Opiate Scree,Urine Neg (NEGATIVE); Phencyclidine Screen, Urine Neg (NEGATIVE)
--- NOTE | 2024-11-12 17:11 | DVHPNRES ---
Progress Note Date Seen: Nov 12, 2024 Resident Creating Document: JUSTIN BARTH RESIDENT Has the PT tested + for MRSA If YES, has PT been informed?: No Medical Necessity Reason Pt with a Central, PICC or Fol: No Medical Necessity Reason syncope Subjective Review of Systems This is a 44-year-old male with past medical history of testicular cancer diagnosed 17 years ago status post resection, came in due to syncope. According to the patient, around 9pm on 11/10/2022 he woke up to go get water from the kitchen, while on the way he started feeling dizzy, sweaty, nauseous and then passed out. Patient unsure how long he was passed out for and was awoken by a family friend visiting his home. Shortly after regaining consciousness, patient notes feeling hot, sweaty along with a headache and dyspnea. Patient had a similar episode of syncope 4 days ago when he visited the ER at the [facility] and shortly thereafter left AMA. Prior to 4 days ago he has never had similar symptoms of syncope before. On review of systems he is complaining of fatigue, palpitations, anxiety and some degree of depression. Initial vitals temperature 97.8, pulse 70, respiratory rate 18 BP:123/79, SpO2 on RA 96%. Lab : WBC noted, 12,000,Cr:1.51 (previous 1.56), troponin 41--> 57--> 61. TSH: 3.247 Twelve lead electrocardiogram reveals normal sinus rhythm with nonspecific ST segment changes to inferior leads. Echo revealed left ventricle is of normal size. Wall thickness is normal. Ejection fraction is normal and is estimated at 60-65%. There is no regional wall motion abnormalities. Diastolic function is preserved. E to E prime ratio is in the normal range. Carotid duplex Normal carotid ultrasound without evidence of hemodynamically significant CCA or ICA stenosis. CT head did not reveal any acute intracranial hemorrhage or territorial ischemia. Chest x-ray was negative for acute cardiopulmonary abnormality. PN 11/12/2024: Patient is seen and examined today. He denies any chest pain dizziness shortness of breaths or any episode syncope seems being on admission. All workup so far has been negative EKG was unremarkable carotid Doppler was unremarkable UDS was negative for any drugs, CHF was unremarkable so far the only thing we habits creatinine level was 1.51--> 1.32 likely pointing towards dehydration. Orthostatic blood pressure also unremarkable. His blood pressure has been pretty stable. However he seems to have a bit of bradycardia when he is sleeping. Objective vital signs Vital Sign Date Time Temp Pulse Resp B/P (MAP) Pulse Ox O2 Delivery O2 Flow Rate FiO2 11/12/24 16:20 98.2 67 20 131/71 (91) 98 98.2 11/12/24 08:10 Room Air* 0 21 Total Intake and Output 11/11/24 11/11/24 11/12/24 15:00 23:00 07:00 Intake Total 200 ml 200 ml Output Total 550 ml Balance 200 ml -350 ml medications Current Medications Medications Dose Ordered Sig/Dawit Route Start Time Stop Time Status Last Admin Dose Admin Atorvastatin Calcium 20 mg HS PO 11/11/24 22:00 11/11/24 20:27 20 MG Trazodone HCl 100 mg HS PRN PO 11/11/24 18:45 11/11/24 20:27 100 MG Sodium Chloride 1,000 ml @ 125 mls/hr Q8H IV 11/12/24 09:30 11/12/24 10:02 125 MLS/HR Examination General Appearance: Alert, Oriented X3, Cooperative, No acute distress HEENT: Atraumatic, PERRLA, EOMI, Mucous membrane moist/pink Respiratory: Clear to auscultation, Normal air movement Cardiovascular: Regular rate, Normal S1, Normal S2, No murmurs, no chest wall tenderness Abdominal: NO distention, no tenderness, bowel sounds present, no scars noted Extremities: No clubbing, No cyanosis, No edema, Normal pulses, No tenderness/swelling Skin: No rashes, No breakdown, No significant lesion Neuro: Normal gait, Normal speech, Strength at 5/5 X4 ext, Normal tone, Sensation intact, Cranial nerves 3-12 NL, Reflexes 2+ Psych/Mental Status: Mental status NL, Mood NL laboratory and microbiology Laboratory Tests 11/12/24 10:21 Test 11/12/24 10:21 Range/Units Serum Glucose 87 74-106 mg/dL Problem List/Assessment/Plan Problem List/Assessment/Plan ASSESSMENT Syncope likely due to dehydration; cardiac,neuro, endocrine and drugs all ruled out ADÁN questionable acute on CKD 3a NSTEMI likely type II Dyslipidemia, newly diagnosed Acute kidney injury like due to dehydration Obesity, BMI: 31.1 Insomnia History of testicular cancer diagnosed 17 years ago s/p resection UDS negative TSH: 3.27 PLAN Orthostatic blood pressure Maintenance fluid Repeat lab in the AM Trazodone prn encourage to walk Diet: regular DVT Prophylaxis: Patient is mobile none at this time Code status: Full Goal of care discussed for more than 25 minute Case and plan discussed with Dr. Saxena Plan discussed with: Patient My Orders My Orders Orders - JUSTIN BARTH Procedure Category Date Status Time Regular Diet DIET 11/11/24 Transmitted Dinner Orthostatic Vital ORDERS 11/11/24 Transmitted Signs 17:51 Trazodone Hcl PHA 11/11/24 In Process (Desyrel) 18:45 * Icing Machine Operator CONS 11/11/24 Transmitted Consult Urine Dip ED NURSING 11/12/24 Transmitted Sodium Chloride 0.9% PHA 11/12/24 In Process 09:30 Basic Metabolic Panel LAB 11/13/24 Verified 04:00 Date of Service: Nov 12, 2024 Billing Provider: KINGS SAXENA MD Common Visit Codes: [id number] INP/OBS CARE(HIGH) JUSTIN BARTH RESIDENT Nov 12, 2024 17:11 KINGS SAXENA MD Nov 17, 2024 20:36
[2024-11-13 01:00] VITALS: BP 125/70; PULSE 65; RESP 18; TEMP 98.8; O2SAT 98
[2024-11-13 05:00] VITALS: BP 122/68; PULSE 66; RESP 18; TEMP 98.4; O2SAT 98
[2024-11-13 08:00] VITALS: PULSE 52; PULSE 53; RESP 19; O2SAT 95
[2024-11-13 08:41] VITALS: BP 116/62; PULSE 52; RESP 19; TEMP 98.5; O2SAT 95
[2024-11-13 09:25] LABS: Potassium 3.6 mmol/L (3.5-5.1); Sodium 142 mmol/L (136-145)
[2024-11-13 09:26] LABS: Anion Gap 6 (5-15); Carbon Dioxide 29 mmol/L (20-31)
[2024-11-13 09:27] LABS: Calcium 9.4 mg/dL (8.7-10.4)
[2024-11-13 09:28] LABS: Chloride 107 mmol/L (98-107)
[2024-11-13 09:31] LABS: BUN/Creatinine Ratio 10.8 (10.0-20.0); Blood Urea Nitrogen 15 mg/dL (9-23)
[2024-11-13 09:41] LABS: Glucose 117 mg/dL (74-106)
[2024-11-13 12:57] VITALS: BP 123/77; PULSE 66; RESP 21; TEMP 98.7; O2SAT 97
[2024-11-13 13:07] VITALS: BP 123/77; PULSE 66; RESP 21; TEMP 98.7; O2SAT 97
--- NOTE | 2024-11-13 13:15 | DVHDSRES ---
Discharge Summary Date of Admission Resident Creating Document: JUSTIN BARTH RESIDENT Nov 10, 2024 at 23:52 Date of Discharge: Nov 13, 2024 Admitting Diagnosis Synocope Labs/Diagnostic Data: PATIENT: JONAS HONG RACCT: [id number] UNIT: [id number] : 1980 LOC: TELE ROOM / BED: [address] [place] [address] / AGE / SEX: 44 / M ADM STATUS: ADM IN SERVICE 0003 ORDERING PHYSICIAN: JENN PLAZA PROCEDURE(s): CARCL - CAROTID DUPLX W COLOR DOP REASON: syncope ORDER NUMBER(s): [id number], ACCESSION NUMBER(s): [id number] US CAROTID DOPPLER CLINICAL INDICATION: syncope TECHNIQUE: Multiple grayscale, color Doppler and spectral Doppler ultrasound images were obtained throughout both carotid systems. COMPARISON: None FINDINGS: RIGHT: CCA PSV: 65 cm/s ECA PSV: 91 cm/s ICA PSV: 70 cm/s ICA EDV: 30 cm/s ICA/CCA Ratio: Less than 2 Vertebral artery: Patent, antegrade flow. Grayscale images demonstrate no significant plaque or visible stenosis. Spectral analysis demonstrates no hemodynamically significant CCA or ICA stenosis. LEFT: CCA PSV: 82 cm/s ECA PSV: 104 cm/s ICA PSV: 76 cm/s ICA EDV: 30 cm/s ICA/CCA Ratio: 2 Vertebral artery: Patent, antegrade flow. Grayscale images demonstrate no significant plaque or visible stenosis. Spectral analysis demonstrates no hemodynamically significant CCA or ICA stenosis. IMPRESSION: Normal carotid ultrasound without evidence of hemodynamically significant CCA or ICA stenosis. ATED BY: SILVER GILL MD DICTATED DATE/TIME: 11/11/24 0147 PATIENT: JONAS HONG RACCT: [id number] UNIT: [id number] : 1980 LOC: ER ROOM / BED: / AGE / SEX: 44 / M ADM STATUS: REG ER SERVICE 2250 ORDERING PHYSICIAN: LORI BRITTON DO PROCEDURE(s): HWOCT - HEAD WITHOUT CONTRAST REASON: syncope and collapse ORDER NUMBER(s): [id number], ACCESSION NUMBER(s): [id number] EXAM: CT HEAD WITHOUT CONTRAST INDICATION: syncope and collapse TECHNIQUE: CT of the head without intravenous contrast. Radiation Dose Information: CT Dose: CTDI volume is 63.92 mGy. Dose-length product is 1131.69 mGy*cm The dose indicators for CT are the volume Computed Tomography (CT) Dose Index (CTDIvol) and the Dose Length Product (DLP), and are measured in units of mGy and mGy-cm, respectively. These indicators are not patient dose, but values generated from the CT scanner acquisition factors. The report includes radiation exposure data for exposures received during this examination. COMPARISON: CT HEAD WITHOUT CONTRAST on DOS: 11/06/24 FINDINGS: There is no evidence of acute intracranial hemorrhage, extra-axial collection, mass effect, midline shift, herniation or hydrocephalus. The ventricles, sulci and cisterns are age appropriate. The mcgrath-white differentiation is intact. Patchy periventricular and subcortical white matter hypoattenuation is nonspecific but may be related to small vessel ischemic disease. The visualized paranasal sinuses and mastoid air cells are clear. The surrounding soft tissues and osseous structures are unremarkable. IMPRESSION: 1. No acute intracranial hemorrhage 2. No CT findings of territorial ischemia. HS:Y ATED BY: MARICHUY GONCALVES Jr., DO DICTATED DATE/TIME: 11/10/24 4552 PATIENT: JONAS HONG RACCT: [id number] UNIT: [id number] : 1980 LOC: ER ROOM / BED: / AGE / SEX: 44 / M ADM STATUS: REG ER SERVICE 2244 ORDERING PHYSICIAN: LORI BRITTON DO PROCEDURE(s): CXRP - CHEST PORTABLE REASON: syncope dizzy ORDER NUMBER(s): [id number], ACCESSION NUMBER(s): [id number] EXAM: XY CHEST PORTABLE CLINICAL HISTORY: syncope dizzy TECHNIQUE: Single AP view of the chest WID: COMPARISON: None FINDINGS: Lines and tubes: None Chest: The heart size and pulmonary vasculature is within normal limits. No pleural effusion, pneumothorax, or consolidation. Linear bibasal atelectasis or scarring. The osseous structures are grossly intact. IMPRESSION: No acute cardiopulmonary abnormality. ATED BY: SILVER GILL MD DICTATED DATE/TIME: 11/10/24 9200 Laboratory Results Test 11/13/24 08:32 11/12/24 10:21 11/12/24 09:15 11/11/24 18:55 Sodium Level 142 mmol/L (136-145) Potassium Level 3.6 mmol/L (3.5-5.1) Chloride Level 107 mmol/L (98-107) Carbon Dioxide Level 29 mmol/L (20-31) Anion Gap 6 (5-15) Blood Urea Nitrogen 15 mg/dL (9-23) Creatinine 1.39 mg/dL (0.700-1.30) Glomerular Filtration Rate Calc 65 mL/min (>90) BUN/Creatinine Ratio 10.8 (10.0-20.0) Serum Glucose 117 mg/dL (74-106) Calcium Level 9.4 mg/dL (8.7-10.4) White Blood Count 6.7 10^3/uL (4.4-10.8) Red Blood Count 4.89 10^6/uL (4.5-5.90) Hemoglobin 14.3 g/dL (13.5-17.5) Hematocrit 42.6 % (41.0-53.0) Mean Corpuscular Volume 87.1 fL (80.0-100.0) Mean Corpuscular Hemoglobin 29.3 pg (28.0-32.0) Mean Corpuscular Hemoglobin Concent 33.6 g/dL (32.0-36.0) Red Cell Distribution Width 14.3 % (11.8-14.3) Platelet Count 244 10^3/uL (140-450) Mean Platelet Volume 7.1 fL (6.9-10.8) Neutrophils (%) (Auto) 66.2 % (37.0-80.0) Lymphocytes (%) (Auto) 21.7 % (10.0-50.0) Monocytes (%) (Auto) 9.3 % (0.0-12.0) Eosinophils (%) (Auto) 2.5 % (0.0-7.0) Basophils (%) (Auto) 0.3 % (0.0-2.0) Neutrophils # (Auto) 4.4 10 ^3/uL (1.6-8.6) Lymphocytes # (Auto) 1.4 10 ^3/uL (0.4-5.4) Monocytes # (Auto) 0.6 10 ^3/uL (0-1.3) Eosinophils # (Auto) 0.2 10 ^3/uL (0-0.8) Basophils # (Auto) 0 10 ^3/uL (0-0.2) Nucleated Red Blood Cells 0.0 % Cortisol AM Sample 17.01 ug/dL (5.27-22.45) Urine Color Light-yellow (Yellow) Urine Clarity Clear (Clear) Urine pH 5.0 (5.0-9.0) Urine Specific [facility] 1.011 (1.001-1.035) Urine Protein Negative (Negative) Urine Ketones Negative (Negative) Urine Blood Negative /uL (Negative) Urine Nitrite Negative (Negative) Urine Bilirubin Negative (Negative) Urine Urobilinogen Normal mg/dL (Negative) Urine Leukocyte Esterase Negative /uL (Negative) Urine RBC 4 /hpf (0 - 3) Urine Microscopic WBC 1 /HPF (0-3) Urine Squamous Epithelial Cells None seen /hpf (<5) Urine Bacteria None seen /hpf (None Seen) Urine Glucose Normal mg/dL (Normal) Urine Opiates Screen Neg (NEGATIVE) Urine Fentanyl Screen Neg (NEGATIVE) Urine Barbiturates Screen Neg (NEGATIVE) Urine Phencyclidine Screen Neg (NEGATIVE) Urine Amphetamines Screen Neg (NEGATIVE) Urine Benzodiazepines Screen Neg (NEGATIVE) Urine Cocaine Screen Neg (NEGATIVE) Urine Cannabinoids Screen Neg (NEGATIVE) Troponin I High Sensitivity 38 ng/L (</=54) Test 11/11/24 18:06 11/11/24 01:47 11/10/24 23:53 11/10/24 22:57 Prothrombin Time 10.9 sec (9.3-11.8) Prothrombin Time INR 1.03 (0.9-1.15) Activated Partial Thromboplast Time 31.0 SEC (24.5-34.5) D-Dimer, Quantitative < 0.19 mg/L FEU (0.0-0.49) B-Type Natriuretic Peptide 10.23 pg/mL (0-100) Triglycerides Level 150 mg/dL (< 150) Cholesterol Level 155 mg/dL (< 200) LDL Cholesterol 110 mg/dL (< 100) HDL Cholesterol 34 mg/dL (40-59) Thyroid Stimulating Hormone (TSH) 3.27 uIU/mL (0.55-4.78) Plasma/Serum Blood Alcohol < 3.0 mg/dL (<10) Hemoglobin A1c 5.6 % A1C (<5.7) Lactic Acid Level 1.4 mmol/L (0.4-2.0) Magnesium Level 1.9 mg/dL (1.6-2.6) Total Bilirubin 0.4 mg/dL (0.2-1.0) Aspartate Amino Transferase (AST) 16 U/L (13-40) Alanine Aminotransferase (ALT) 26 U/L (7-40) Alkaline Phosphatase 85 U/L (46-116) Total Protein 7.7 g/dL (5.7-8.2) Albumin 4.6 g/dL (3.2-4.8) Other Laboratory Tests 11/13/24 08:32 11/12/24 10:21 Brief Hx & Hospital Course: Hospital course This 44-year-old male with past medical history of testicular cancer diagnosed 17 years ago status post resection, came in due to syncope. According to the patient, around 9pm on 11/10/2022 he woke up to go get water from the kitchen, while on the way he started feeling dizzy, sweaty, nauseous and then passed out. Patient unsure how long he was passed out for and was awoken by a family friend visiting his home. Shortly after regaining consciousness, patient notes feeling hot, sweaty along with a headache and dyspnea. Patient had a similar episode of syncope 4 days ago when he visited the ER at the [facility] and shortly thereafter left AMA. During this visit, he complained of fatigue, palpitations, anxiety and some degree of depression. Initial vitals temperature 97.8, pulse 70, respiratory rate 18 BP:123/79, SpO2 on RA 96%. Lab : WBC noted, 12,000,Cr:1.51 (previous 1.56), troponin 41--> 57--> 61. TSH: 3.247. Twelve lead electrocardiogram reveals normal sinus rhythm with nonspecific ST segment changes to inferior leads. Echo revealed left ventricle is of normal size. Wall thickness is normal. Ejection fraction is normal and is estimated at 60-65%. There is no regional wall motion abnormalities. Diastolic function is preserved. E to E prime ratio is in the normal range. Carotid duplex Normal carotid ultrasound without evidence of hemodynamically significant CCA or ICA stenosis. CT head did not reveal any acute intracranial hemorrhage or territorial ischemia. Chest x-ray was negative for acute cardiopulmonary abnormality. Started patient on normal saline maintenance and repeat labs in the morning urinalysis was negative for toxicology was negative for any substance use. Patient's lab work has been negative and his has not have any syncope since he has been admitted. Heart Rate remain normal and blood pressure is normal as well. So far, all work up has been negative so far. The only changes noticed was creatinine level was elevated at 1.51 down to 1.31 after hydration. She is stable for discharge home. I recommend that patient follow sup with neurology out patient for further evaluation. Examination on the day of discharge General Appearance: Alert, Oriented X3, Cooperative, No acute distress HEENT: Atraumatic, PERRLA, EOMI, Mucous membrane moist/pink Respiratory: Clear to auscultation, Normal air movement Cardiovascular: Regular rate, Normal S1, Normal S2, No murmurs, no chest wall tenderness Abdominal: NO distention, no tenderness, bowel sounds present, no scars noted Extremities: No clubbing, No cyanosis, No edema, Normal pulses, No tenderness/swelling Skin: No rashes, No breakdown, No significant lesion Neuro: Normal gait, Normal speech, Strength at 5/5 X4 ext, Normal tone, Sensation intact, Cranial nerves 3-12 NL, Reflexes 2+ Psych/Mental Status: Mental status NL, Mood NL Diagnoses Syncope likely due to dehydration; cardiac,neuro, endocrine and drugs all ruled out ADÁN ( New onset) NSTEMI likely type II Dyslipidemia, newly diagnosed Acute kidney injury like due to dehydration Obesity, BMI: 31.1 Insomnia History of testicular cancer diagnosed 17 years ago s/p resection UDS negative TSH: 3.27 Discharge plan Strongly encouraged adequate hydration Recommend a follow up with the neurologist Report back if he gets another episode Follow up with discharge clinic within one week Follow up with the primary care provider within 1 to [address] Mayorga Consults/Reason for consult Cardiology for syncope Condition at Discharge: Stable Final Diagnosis/Problems List Syncope likely due to dehydration; cardiac, neuro, endocrine and drugs all ruled out ADÁN NSTEMI likely type II Dyslipidemia, newly diagnosed Acute kidney injury like due to dehydration Obesity, BMI: 31.1 Insomnia History of testicular cancer diagnosed 17 years ago s/p resection UDS negative TSH: 3.27 Discharge Disposition: Home Discharge Instruct/Medications Diet: Regular Activity: No Restrictions, As Tolerated Follow Up/Referral: 7 days at the discharge clinic on Fri with DR. Klein Medications: Home medications Discharge Statement: "Patient was advised to return to the ER or call 911 if any headaches, dizziness, shortness of breath, chest pain, abdominal pain, bleeding, fevers, or worsening of medical condition. Patient was counseled about treatment plan, medications, possible side effects, patientverbalized understanding. All questions were answered to the best of my ability. This discharge took greater then 30 minutes in planning, reviewing documentation, counseling the patient, and discussing with other team members." ASSESSMENT ASSESSMENT Assessment Syncope likely due to dehydration; cardiac,neuro, endocrine and drugs all ruled out ADÁN questionable acute on CKD 2 NSTEMI likely type II Dyslipidemia, newly diagnosed Acute kidney injury like due to dehydration Obesity, BMI: 31.1 Insomnia History of testicular cancer diagnosed 17 years ago s/p resection UDS negative TSH: 3.27 Addendum Addendum Addendum I was physically present for the khoury portions of the service provided to patient by THE RESIDENT. I have reviewed the documentation, discussed the case with resident and agree with the resident's documentation except as noted. Also the patient's clinical case was discussed with the patient's nurse. This medical document was created using an electronic medical record system with computerized dictation system. Although this document has been carefully reviewed, there might still be some phonetic and typographical errors. These areas are purely typographical due to imperfections of the software programs, and do not reflect any compromise in the patient's medical care. Late signature. Date of Service: Nov 13, 2024 Billing Provider: MARVIN MAYORGA MD Common Visit Codes: 33410-KQL/OBS DISCH DAY >30min JUSTIN BARTH RESIDENT Nov 13, 2024 13:15 MARVIN MAYORGA MD Nov 14, 2024 21:41
== END 2024-11-13 14:00 | disposition home or self-care (01) | DRG 422 ==
LOC: ER 21:57 → TELE 23:52 → TELE-WESTW 11-11 17:45
PROVIDERS: ADMIT Internal Medicine Geriatric Medicine; ATTEND Internal Medicine Geriatric Medicine
DX: E86.0 Dehydration (principal); N17.0 Acute kidney failure with tubular necrosis; I21.A1 Myocardial infarction type 2; E66.9 Obesity, unspecified; E78.5 Hyperlipidemia, unspecified; G47.00 Insomnia, unspecified; Z85.47 Personal history of malignant neoplasm of testis; Z68.31 Body mass index [BMI] 31.0-31.9, adult; Z92.21 Personal history of antineoplastic chemotherapy; Z92.3 Personal history of irradiation
CPT/HCPCS: 36415; 70450; 71045; 80048; 80053; 80061; 80307; 80320; 81001; 82533; 83036; 83605; 83735; 83880; 84443; 84484; 85025; 85379; 85610; 85730; 93005; 93306; 93886; G0378